=== PATIENT | male | born 1975 | race Caucasian/White ===

== ENCOUNTER 2017-04-11 18:09 | Observation (INO) | payer OTHER ==
[2017-04-11] MEDS ORDERED: SODIUM CHLORIDE 0.9% 1,000 ML IV STA (18:20)
[2017-04-11] MEDS ORDERED: NITROGLYCERIN OINT 1 INCH/GM PACKET TOPICAL STA (18:20)
--- NOTE | 2017-04-11 18:23 | ED ---
Chest Pain HPI - General Stated Complaint: chest pain Time Seen by Provider: 04/11/17 18:09 Source: patient, EMS, RN notes reviewed Mode of arrival: EMS Limitations: no limitations - History of Present Illness Initial Comments: This is a 41-year-old male with a benign history who states he had the onset around 11:00 today of left-sided chest pain was sharp in nature intermittent was initially 6/10 severity was brought in by EMS he had a gastrinoma as well as given aspirin and nitro by EMS personnel. Patient now stating his pain is 1/ 10 he believes nitro aspirin and oxygen did help. He also has some shortness of breath associated with it. No prior history of heart disease he is a nonsmoker denies any recent fevers chills sweats cough or other symptoms. MD Complaint: chest pain - Related Data Home Medications Medication Instructions Recorded Confirmed Odmvcvi-Hslf-Kion [id number] 2 tab PO Q4HR PRN 04/11/17 04/11/17 [Excedrin] Allergies Allergy/AdvReac Type Severity Reaction Status Date / Time venom-honey bee Allergy Severe Anaphylaxis Verified 04/11/17 19:02 codeine AdvReac Nausea & Verified 04/11/17 19:02 Vomiting Review of Systems ROS Statement: Those systems with pertinent positive or pertinent negative responses have been documented in the HPI. ROS Other: All systems not noted in ROS Statement are negative. EKG Findings - EKG Results: EKG: interpreted by YASMANY, sinus rhythm (Sinus rhythm a rate of 88 appear of 01 56 QRS duration is 94 QT/QTC of 340/411 left exodeviation no acute ST-T wave changes.) Past Medical History Past Medical History: Asthma History of Any Multi-Drug Resistant Organisms: None Reported Past Surgical History: Tonsillectomy Additional Past Surgical History / Comment(s): finger, plate left arm, hernia repair Past Psychological History: No Psychological Hx Reported Smoking Status: Never smoker Past Alcohol Use History: None Reported Past Drug Use History: None Reported General Exam - General Exam Comments Initial Comments: This is a well-developed well-nourished awake alert oriented 3 male Limitations: no limitations General appearance: alert, in no apparent distress Head exam: Present: atraumatic, normocephalic, normal inspection Eye exam: Present: normal appearance, PERRL, EOMI. Absent: scleral icterus, conjunctival injection, periorbital swelling ENT exam: Present: normal exam, mucous membranes moist Neck exam: Present: normal inspection. Absent: tenderness, meningismus, lymphadenopathy Respiratory exam: Present: normal lung sounds bilaterally. Absent: respiratory distress, wheezes, rales, rhonchi, stridor Cardiovascular Exam: Present: regular rate, normal rhythm, normal heart sounds. Absent: systolic murmur, diastolic murmur, rubs, gallop, clicks GI/Abdominal exam: Present: soft, normal bowel sounds. Absent: distended, tenderness, guarding, rebound, rigid Extremities exam: Present: normal inspection, full ROM, normal capillary refill. Absent: tenderness, pedal edema, joint swelling, calf tenderness Back exam: Present: normal inspection Neurological exam: Present: alert, oriented X3, CN II-XII intact Psychiatric exam: Present: normal affect, normal mood Skin exam: Present: warm, dry, intact, normal color. Absent: rash Course Vital Signs 04/11/17 18:10 Temperature 98.7 F Pulse Rate 94 Respiratory 18 Rate Blood Pressure 132/62 O2 Sat by Pulse 97 Oximetry Chest Pain MDM - MDM I did review the imaging and reports no acute findings. Patient states he still having intermittent episodes of chest pain. This workup appears be within normal limits though he did get symptomatic relief from the medications were rendered prior to arrival. He will be admitted for evaluation by cardiology. Disposition Clinical Impression: Unstable angina pectoris, Chest pain Disposition: ADMITTED IP TO THIS [facility] Condition: Stable Referrals: None,Stated [Primary Care Provider] - 1-2 days
[2017-04-11 18:34] LABS: Basophils # (A) 0.1 k/uL (0-0.2); Basophils % (A) 1 %; CH 28.4; CHCM 33.8; Eosinophils # (A) 0.1 k/uL (0-0.7); Eosinophils % (A) 1 %; HCT 40.2 % (39.0-53.0); HDW 2.54; HGB 13.5 gm/dL (13.0-17.5); Luc # (Auto) 0.09; Luc % (Auto) 1; Lymphocytes # (A) 1.1 k/uL (1.0-4.8); Lymphocytes % (A) 10 %; MCH 28.5 pg (25.0-35.0); MCHC 33.7 g/dL (31.0-37.0); MCV 84.5 fL (80.0-100.0); Mean Platelet Volume 6.4; Monocytes # (A) 0.9 k/uL (0-1.0); Monocytes % (A) 9 %; Neutrophils # (A) 7.9 k/uL (1.3-7.7); Neutrophils % (A) 78 %; RBC 4.76 m/uL (4.30-5.90); RDW 12.7 % (11.5-15.5); WBC 10.2 k/uL (3.8-10.6); WBC (Perox) 10.37
--- NOTE | 2017-04-11 18:39 | XR ---
EXAMINATION TYPE: XR chest 2V DATE OF EXAM: 04/11/2017 6:30 PM COMPARISON: 11/16/2013 HISTORY: 41-year-old male with chest pain and shortness of breath TECHNIQUE: PA and lateral views FINDINGS: Heart is normal size. Aorta and pulmonary vasculature within normal limits. Some strandy atelectasis of the left base. Otherwise, no consolidation or pleural effusion. IMPRESSION: Some strandy atelectasis at the left base. No acute cardiopulmonary process.
[2017-04-11 18:49] LABS: INR 1.1 (<1.1); Partial Thromboplastin Time 24.3 sec (22.0-30.0); Prothrombin Time 10.7 sec (9.0-12.0)
[2017-04-11 19:01] LABS: ALT 48 U/L (21-72); AST 27 U/L (17-59); Alkaline Phosphatase 60 U/L (38-126); Amylase 64 U/L (30-110); Anion Gap 10 mmol/L; Blood Urea Nitrogen 16 mg/dL (9-20); Carbon Dioxide 24 mmol/L (22-30); Chloride 106 mmol/L (98-107); Glucose 99 mg/dL (74-99); Magnesium 1.8 mg/dL (1.6-2.3); Non-African American GFR(MDRD) >60 (>60 ml/min/1.73 sqM); Potassium 4.1 mmol/L (3.5-5.1); Sodium 140 mmol/L (137-145); Total Bilirubin 0.5 mg/dL (0.2-1.3); Total Protein 6.4 g/dL (6.3-8.2)
[2017-04-11 19:10] LABS: Creatine Kinase 136 U/L (55-170)
[2017-04-11 19:23] LABS: Creatine Kinase MB 0.6 ng/mL (0.0-2.4); Troponin I <0.012 ng/mL (0.000-0.034)
[2017-04-11] MEDS ORDERED: HEPARIN SODIUM,PORCINE 5,000 UNIT/ML 1 ML VIAL IV ONE (20:13)
[2017-04-11] MEDS ORDERED: NITROGLYCERIN SL TABS 0.4 MG TAB SUBLINGUAL PRN (20:13)
[2017-04-11] MEDS ORDERED: HEPARIN SODIUM,PORCINE/D5W PMX 25,000 UNIT in DEXTROSE/WATER 1 500ML.BAG IV SCH (20:15)
[2017-04-11] MEDS ORDERED: SODIUM CHLORIDE 0.9% 1,000 ML IV SCH (20:15)
[2017-04-11 21:49] LABS: Creatine Kinase 127 U/L (55-170)
[2017-04-11 22:03] LABS: Creatine Kinase MB 0.6 ng/mL (0.0-2.4); Troponin I <0.012 ng/mL (0.000-0.034)
[2017-04-11] MEDS: ACETAMINOPHEN TAB 325 MG TAB PO PRN (22:53)
[2017-04-12] MEDS: NITROGLYCERIN OINT 1 INCH/GM PACKET TOPICAL SCH ×2 (00:45→05:59)
[2017-04-12] MEDS ORDERED: MORPHINE SULFATE 2 MG/ML SYRINGE IVP PRN (01:19)
[2017-04-12] MEDS ORDERED: ONDANSETRON 4 MG/2 ML VIAL IVP PRN (01:20)
[2017-04-12] MEDS: ACETAMINOPHEN TAB 325 MG TAB PO PRN ×3 (03:12→14:59)
[2017-04-12] MEDS ORDERED: HEPARIN SODIUM,PORCINE 5,000 UNIT/ML 1 ML VIAL IV PRN (04:25)
[2017-04-12 07:15] LABS: Creatine Kinase 111 U/L (55-170)
[2017-04-12 07:21] LABS: Cholesterol 117 mg/dL (<200); HDL Cholesterol 42 mg/dL (40-60); Triglycerides 75 mg/dL (<150)
[2017-04-12 07:27] LABS: Creatine Kinase MB 0.3 ng/mL (0.0-2.4); Troponin I <0.012 ng/mL (0.000-0.034)
--- NOTE | 2017-04-12 08:26 | P.CRDCN ---
<Gill Lea E - Last Filed: 04/12/17 08:15> History of Present Illness Consult date: 04/12/17 Requesting physician: Krystyna Crandall Consult reason: chest pain Chief complaint: Chest pain History of present illness: This is a pleasant 41-year-old gentleman with no documented history of hypertension, no diabetes, no hyperlipidemia, nonsmoker, unaware of family history. Works as a heavy duty truck mechanic. He presents to the hospital with symptoms of left-sided chest pain which she describes as a heaviness with also a sharp pain in the chest. He does have associated shortness of breath and states that on deep breathing the pain gets significantly worse. He also has significant chest wall tenderness in that area. He was given sublingual nitroglycerin with minimal relief of symptoms, he states that the morphine completely took care of symptoms. Troponins have been negative 3. EKG shows normal sinus rhythm with nonspecific ST-T wave changes. CBC has been normal. D-dimer negative. Potassium 4.1, BUN 16, creatinine 1.0. BNP normal. Cholesterol 117, LDL 60, HDL 42. Temperature 99.3. At the time of my examination this morning, patient only has pain with deep breathing, and on palpation of the chest. Past Medical History Past Medical History: Asthma History of Any Multi-Drug Resistant Organisms: None Reported Past Surgical History: Tonsillectomy Additional Past Surgical History / Comment(s): finger, plate left arm, hernia repair Past Psychological History: No Psychological Hx Reported Smoking Status: Never smoker Past Alcohol Use History: None Reported Past Drug Use History: None Reported - Past Family History Mother Family Medical History: Diabetes Mellitus Medications and Allergies Home Medications Medication Instructions Recorded Confirmed Type Jndoumy-Kojp-Igcx [id number] 2 tab PO Q4HR PRN 04/11/17 04/11/17 History [Excedrin] Allergies Allergy/AdvReac Type Severity Reaction Status Date / Time venom-honey bee Allergy Severe Anaphylaxis Verified 04/11/17 19:02 codeine AdvReac Nausea & Verified 04/11/17 19:02 Vomiting Physical Exam Vitals: Vital Signs Temp Pulse Pulse Resp BP BP Pulse Ox 04/12/17 03:41 99.3 F 83 16 118/65 96 04/12/17 01:52 64 18 102/58 97 04/12/17 00:48 88 18 103/53 98 04/12/17 00:14 90 18 103/58 96 04/11/17 23:27 72 18 102/58 100 04/11/17 22:44 74 18 116/56 99 04/11/17 22:00 70 18 128/70 99 04/11/17 21:00 90 18 105/59 95 04/11/17 19:53 93 18 135/68 97 04/11/17 19:22 80 18 110/58 98 04/11/17 18:10 98.7 F 94 18 132/62 97 Intake and Output 04/11/17 04/12/17 04/12/17 22:59 06:59 14:59 Intake Total 1493.983 Balance 1493.983 Intake: IV 960 Heparin Sodium,Porcine/ 160 D5w Pmx 25,000 unit In Dextrose/Water 1 500ml. bag @ 10.2 UNITS/KG/HR 19 .89 mls/hr IV .Q24H KINJAL Rx#:[id number] Sodium Chloride 0.9% 1, 800 000 ml @ 100 mls/hr IV . Q10H STA Rx#:[id number] Intake, IV Titration 183.983 Amount Heparin Sodium,Porcine/ 183.983 D5w Pmx 25,000 unit In Dextrose/Water 1 500ml. bag @ 10.2 UNITS/KG/HR 19 .89 mls/hr IV .Q24H KINJAL Rx#:[id number] Oral 350 Other: Voiding Method Urinal # Voids 2 Weight 97.522 kg 105.9 kg PHYSICAL EXAMINATION: HEENT: Head is atraumatic, normocephalic. Pupils equal, round. Neck is supple. There is no elevated jugular venous pressure. HEART EXAMINATION: Heart S1, S2 normal. No murmur or gallop heard. CHEST EXAMINATION: Lungs are clear to auscultation and precussion. No chest wall tenderness is noted on palpation or with deep breathing. ABDOMEN: Soft, nontender. Bowel sounds are heard. No organomegaly noted. EXTREMITIES: 2+ peripheral pulses with no evidence of peripheral edema and no calf tenderness noted. NEUROLOGIC patient is awake, alert and oriented -3. . Results 04/11/17 18:10 04/11/17 18:10 Cardiac Enzymes 04/11/17 04/11/17 04/11/17 Range/Units 18:10 18:10 20:55 AST 27 (17-59) U/L CK-MB (CK-2) 0.6 0.6 (0.0-2.4) ng/mL Troponin I <0.012 <0.012 (0.000-0.034) ng/mL 04/12/17 Range/Units 05:42 AST (17-59) U/L CK-MB (CK-2) 0.3 (0.0-2.4) ng/mL Troponin I <0.012 (0.000-0.034) ng/mL Coagulation 04/11/17 04/12/17 Range/Units 18:10 02:31 PT 10.7 (9.0-12.0) sec APTT 24.3 34.8 H (22.0-30.0) sec Lipids 04/12/17 Range/Units 05:42 Triglycerides 75 (<150) mg/dL Cholesterol 117 (<200) mg/dL HDL Cholesterol 42 (40-60) mg/dL CBC 04/11/17 Range/Units 18:10 WBC 10.2 (3.8-10.6) k/uL RBC 4.76 (4.30-5.90) m/uL Hgb 13.5 (13.0-17.5) gm/dL Hct 40.2 (39.0-53.0) % Plt Count 224 (150-450) k/uL Comprehensive Metabolic Panel 04/11/17 Range/Units 18:10 Sodium 140 (137-145) mmol/L Potassium 4.1 (3.5-5.1) mmol/L Chloride 106 (98-107) mmol/L Carbon Dioxide 24 (22-30) mmol/L BUN 16 (9-20) mg/dL Creatinine 1.07 (0.66-1.25) mg/dL Glucose 99 (74-99) mg/dL Calcium 8.0 L (8.4-10.2) mg/dL AST 27 (17-59) U/L ALT 48 (21-72) U/L Alkaline Phosphatase 60 (38-126) U/L Total Protein 6.4 (6.3-8.2) g/dL Albumin 3.5 (3.5-5.0) g/dL Current Medications Generic Name Dose Route Start Last Admin Trade Name Freq PRN Reason Stop Dose Admin Acetaminophen 650 mg 05/21/17 22:48 04/12/17 06:28 Tylenol Tab PO 650 mg Q4HR PRN Administration Fever and/ or Mild Pain Aspirin 325 mg 04/12/17 09:00 Aspirin PO DAILY [facility] Heparin Sodium (Porcine) 0 unit 04/12/17 04:25 04/12/17 06:09 Heparin IV 4,000 unit Q6H PRN Administration Low PTT Protocol Heparin Sodium/Dextrose 25,000 500 mls @ 19.89 mls/hr 04/11/17 20:15 06:15 unit/ IV Solution IV 13.2 units/kg/hr .Q24H KINJAL 25.74 mls/hr Protocol Titration 10.2 UNITS/KG/HR Sodium Chloride 1,000 mls @ 20 mls/hr 04/11/17 20:15 04/11/17 20:41 Saline 0.9% IV Not Given .Q24H [facility] Morphine Sulfate 2 mg 04/12/17 01:19 04/12/17 01:23 Morphine Sulfate (Inj) IVP 2 mg Q3H PRN Administration Severe Pain/Discomfort Nitroglycerin 1 inch 04/12/17 00:00 04/12/17 05:59 Nitro-Bid Oint TOPICAL Not Given Q6HR [facility] Nitroglycerin 0.4 mg 04/11/17 20:13 Nitrostat SUBLINGUAL Q5M PRN Chest Pain Ondansetron HCl 4 mg 04/12/17 01:20 Zofran IVP Q6HR PRN Nausea And Vomiting Intake and Output 04/11/17 04/12/17 04/12/17 22:59 06:59 14:59 Intake Total 1493.983 Balance 1493.983 Intake: IV 960 Heparin Sodium,Porcine/ 160 D5w Pmx 25,000 unit In Dextrose/Water 1 500ml. bag @ 10.2 UNITS/KG/HR 19 .89 mls/hr IV .Q24H KINJAL Rx#:[id number] Sodium Chloride 0.9% 1, 800 000 ml @ 100 mls/hr IV . Q10H STA Rx#:[id number] Intake, IV Titration 183.983 Amount Heparin Sodium,Porcine/ 183.983 D5w Pmx 25,000 unit In Dextrose/Water 1 500ml. bag @ 10.2 UNITS/KG/HR 19 .89 mls/hr IV .Q24H KINJAL Rx#:[id number] Oral 350 Other: Voiding Method Urinal # Voids 2 Weight 97.522 kg 105.9 kg 04/11/17 18:10 04/11/17 18:10 EKG Interpretations (text) EKG shows normal sinus rhythm with nonspecific ST-T wave changes Assessment and Plan Plan: Assessment and plan #1 chest pain, atypical for acute coronary syndrome. Troponins have been negative 3. EKG shows normal sinus rhythm with nonspecific ST-T wave changes. #2 Cardiac factors negative for hypertension, no diabetes, no hyperlipidemia, patient is a nonsmoker, unaware of family history. Plan Discontinue the Nitropaste and IV heparin. Obtain echocardiogram with Doppler study. Patient's echocardiogram with Doppler study was normal, he may be able to be discharged from our perspective and follow-up with outpatient stress testing. DNP note has been reviewed, I agree with a documented findings and plan of care. Patient was seen and examined. <Vaughn Culver - Last Filed: 04/12/17 08:35> Physical Exam Vitals: Vital Signs Temp Pulse Pulse Resp BP BP Pulse Ox 04/12/17 03:41 99.3 F 83 16 118/65 96 04/12/17 01:52 64 18 102/58 97 04/12/17 00:48 88 18 103/53 98 04/12/17 00:14 90 18 103/58 96 04/11/17 23:27 72 18 102/58 100 04/11/17 22:44 74 18 116/56 99 04/11/17 22:00 70 18 128/70 99 04/11/17 21:00 90 18 105/59 95 04/11/17 19:53 93 18 135/68 97 04/11/17 19:22 80 18 110/58 98 04/11/17 18:10 98.7 F 94 18 132/62 97 Intake and Output 04/11/17 04/12/17 04/12/17 22:59 06:59 14:59 Intake Total 1493.983 Balance 1493.983 Intake: IV 960 Heparin Sodium,Porcine/ 160 D5w Pmx 25,000 unit In Dextrose/Water 1 500ml. bag @ 10.2 UNITS/KG/HR 19 .89 mls/hr IV .Q24H KINJAL Rx#:[id number] Sodium Chloride 0.9% 1, 800 000 ml @ 100 mls/hr IV . Q10H STA Rx#:[id number] Intake, IV Titration 183.983 Amount Heparin Sodium,Porcine/ 183.983 D5w Pmx 25,000 unit In Dextrose/Water 1 500ml. bag @ 10.2 UNITS/KG/HR 19 .89 mls/hr IV .Q24H KINJAL Rx#:[id number] Oral 350 Other: Voiding Method Urinal # Voids 2 Weight 97.522 kg 105.9 kg Results 04/11/17 18:10 04/11/17 18:10 Cardiac Enzymes 04/11/17 04/11/17 04/11/17 Range/Units 18:10 18:10 20:55 AST 27 (17-59) U/L CK-MB (CK-2) 0.6 0.6 (0.0-2.4) ng/mL Troponin I <0.012 <0.012 (0.000-0.034) ng/mL 04/12/17 Range/Units 05:42 AST (17-59) U/L CK-MB (CK-2) 0.3 (0.0-2.4) ng/mL Troponin I <0.012 (0.000-0.034) ng/mL Coagulation 04/11/17 04/12/17 Range/Units 18:10 02:31 PT 10.7 (9.0-12.0) sec APTT 24.3 34.8 H (22.0-30.0) sec Lipids 04/12/17 Range/Units 05:42 Triglycerides 75 (<150) mg/dL Cholesterol 117 (<200) mg/dL HDL Cholesterol 42 (40-60) mg/dL CBC 04/11/17 Range/Units 18:10 WBC 10.2 (3.8-10.6) k/uL RBC 4.76 (4.30-5.90) m/uL Hgb 13.5 (13.0-17.5) gm/dL Hct 40.2 (39.0-53.0) % Plt Count 224 (150-450) k/uL Comprehensive Metabolic Panel 04/11/17 Range/Units 18:10 Sodium 140 (137-145) mmol/L Potassium 4.1 (3.5-5.1) mmol/L Chloride 106 (98-107) mmol/L Carbon Dioxide 24 (22-30) mmol/L BUN 16 (9-20) mg/dL Creatinine 1.07 (0.66-1.25) mg/dL Glucose 99 (74-99) mg/dL Calcium 8.0 L (8.4-10.2) mg/dL AST 27 (17-59) U/L ALT 48 (21-72) U/L Alkaline Phosphatase 60 (38-126) U/L Total Protein 6.4 (6.3-8.2) g/dL Albumin 3.5 (3.5-5.0) g/dL Current Medications Generic Name Dose Route Start Last Admin Trade Name Freq PRN Reason Stop Dose Admin Acetaminophen 650 mg 04/11/17 22:48 04/12/17 06:28 Tylenol Tab PO 650 mg Q4HR PRN Administration Fever and/ or Mild Pain Aspirin 81 mg 04/12/17 09:00 Aspirin PO DAILY [facility] Morphine Sulfate 2 mg 04/12/17 01:19 04/12/17 01:23 Morphine Sulfate (Inj) IVP 2 mg Q3H PRN Administration Severe Pain/Discomfort Nitroglycerin 0.4 mg 04/11/17 20:13 Nitrostat SUBLINGUAL Q5M PRN Chest Pain Ondansetron HCl 4 mg 04/12/17 01:20 Zofran IVP Q6HR PRN Nausea And Vomiting Intake and Output 04/11/17 04/12/17 04/12/17 22:59 06:59 14:59 Intake Total 1493.983 Balance 1493.983 Intake: IV 960 Heparin Sodium,Porcine/ 160 D5w Pmx 25,000 unit In Dextrose/Water 1 500ml. bag @ 10.2 UNITS/KG/HR 19 .89 mls/hr IV .Q24H KINJAL Rx#:[id number] Sodium Chloride 0.9% 1, 800 000 ml @ 100 mls/hr IV . Q10H STA Rx#:[id number] Intake, IV Titration 183.983 Amount Heparin Sodium,Porcine/ 183.983 D5w Pmx 25,000 unit In Dextrose/Water 1 500ml. bag @ 10.2 UNITS/KG/HR 19 .89 mls/hr IV .Q24H KINJAL Rx#:[id number] Oral 350 Other: Voiding Method Urinal # Voids 2 Weight 97.522 kg 105.9 kg 04/11/17 18:10 04/11/17 18:10
--- NOTE | 2017-04-12 08:57 | P.PN ---
Progress Note - Text Patient interviewed and examined Atypical discomfort pleuritic in nature. All cardiac enzymes Multiple normal ECGs Normal LDL Questionable history of hypertension Plan Stop heparin. Nitroglycerin 2-D echo and Doppler study 2-D echo and Doppler study See full dictation by Dr. burk
[2017-04-12] MEDS ORDERED: ASPIRIN 325 MG TAB PO SCH (09:00)
[2017-04-12] MEDS: ASPIRIN 81 MG CHEW PO SCH (09:33)
[2017-04-12] MEDS ORDERED: SODIUM CHLORIDE 0.9% 1,000 ML IV ONE (15:16)
--- NOTE | 2017-04-12 23:20 | HP ---
DATE OF ADMISSION: 04/11/2017 REASON FOR ADMISSION: Chest pain. HISTORY OF PRESENTING ILLNESS: This is a 41-year-old gentleman who was brought into the hospital actually for swelling in his neck and around his lips and throat swelling as well. Patient has a significant history of ALLERGIES TO BEES, with similar episodes in the past. Patient apparently has had anaphylactic reactions in the past; however, he has never been intubated in the past. Patient states that he was outside playing with his children and suddenly noticed the above-described symptoms. Thereafter he noticed a left-sided chest pain as well. Patient was seen in the emergency room. Apparently at that time patient continued to have some swelling in his neck; however, it resolved overnight. Patient states that the chest pain has improved upon receiving a dose of morphine. EKG did not reveal ST-T wave changes. Cardiac enzymes x3 were negative. Patient states that he has had some symptoms of fatigue; however, no fevers, chills, nausea, vomiting, diarrhea, abdominal pain, urinary urgency or frequency are reported. Fourteen-point review of systems was done; none pertinent other than those mentioned above. His chest pain was left-sided, non-radiating, dull, continuous in nature. No alleviating or exacerbating factors reported. Home medications include Excedrin p.r.n., 2 tabs p.o. q.4 hours. ALLERGIES: 1. BEES. 2. CODEINE. Past medical history includes asthma. Past surgical history includes tonsillectomy and a hernia repair. SOCIAL HISTORY: Lifelong nonsmoker. No alcohol use or illicit drug use. PHYSICAL EXAM: VITALS: Temperature 98.7, heart rate 94, respiratory rate around 16, blood pressure 130/62. Saturating 97% on room air. GENERALLY: Patient appears to be alert, oriented x3. HEENT: The pupils are equal and reactive to light and accommodation. HEART: S1, S2 present. No murmur appreciated. LUNGS: Good air entry. No wheezing or rhonchi noted. ABDOMINAL EXAM: Soft, nontender, no organomegaly appreciated. GENITOURINARY: No Lockhart in place. EXTREMITIES: Pulses can be palpated distally. Denies any tenderness on gross palpation. SKIN: On a gross skin exam does not appear to have any purpura or any skin rashes that were noted. NEUROLOGICALLY: Grossly cranial nerves 2-12 intact. No motor or sensory deficits noted. Laboratory data include hemoglobin 13.5, hematocrit 40.2, white count of 10.2, platelets of 224. D-dimer was 0.29. Sodium 140, potassium 4.1, chloride 106, bicarb 24. BUN 16, creatinine 1.07. Cardiac enzymes x3 were negative. Influenza screen was negative. ASSESSMENT AND PLAN: 1. Atypical chest pain. This is likely musculoskeletal in etiology. 2. Anaphylactic reaction to an unknown allergen. PLAN: Continue monitoring overnight in the hospital. An echocardiogram was requested. Will rule out wall motion abnormalities. Patient can have an outpatient stress test as recommended by Cardiology. Patient will be given an EpiPen on discharge. Did discuss visiting an local owner operator truck driver to delineate source. Patient states he is sure that it was not a honeybee sting. Patient will be given a normal saline fluid bolus as well. If patient is stable, will likely discharge the patient home in the next 24 hours to follow up outpatient with Cardiology, depending on the echocardiogram results.
[2017-04-13 08:33] VITALS: RESP 18
[2017-04-13] MEDS: ASPIRIN 81 MG CHEW PO SCH (09:07)
[2017-04-13] MEDS ORDERED: KETOROLAC 30 MG/ML 1 ML VIAL IVP STA (11:37)
[2017-04-13] MEDS ORDERED: methylPREDNISolone SOD SUCCI 125 MG/2 ML VIAL IV STA (11:39)
[2017-04-13 12:54] VITALS: BP 129/83; PULSE 93; TEMP 99
--- NOTE | 2017-04-13 15:58 | P.DS ---
Providers Date of admission: 04/11/17 20:13 Attending physician: Krystyna Crandall Consults: 04/11/17 20:13 Consult Physician Urgent Consulting Provider: Louise Terry Consult Reason/Comments: Chest pain Do you want consulting provider notified?: Yes Primary care physician: Stated None Hospital Course: Hospital course This is a 41-year-old gentleman who was brought into the hospital actually for swelling in his neck and around his lips and throat swelling as well. Patient has a significant history of ALLERGIES TO BEES, with similar episodes in the past. Patient apparently has had anaphylactic reactions in the past; however, he has never been intubated in the past. Patient states that he was outside playing with his children and suddenly noticed the above-described symptoms. Thereafter he noticed a left-sided chest pain as well. Patient was seen in the emergency room. Apparently at that time patient continued to have some swelling in his neck; however, it resolved overnight. Patient states that the chest pain has improved upon receiving a dose of morphine. EKG did not reveal ST-T wave changes. Cardiac enzymes x3 were negative. Patient states that he has had some symptoms of fatigue; however, no fevers, chills, nausea, vomiting, diarrhea, abdominal pain, urinary urgency or frequency are reported. Fourteen-point review of systems was done; none pertinent other than those mentioned above. His chest pain was left-sided, non-radiating, dull, continuous in nature. No alleviating or exacerbating factors reported. No procedures were performed doing well on the day of discharge tolerating activity PHYSICAL EXAM: VITALS: Temperature 98.7, heart rate 94, respiratory rate around 16, blood pressure 130/62. Saturating 97% on room air. GENERALLY: Patient appears to be alert, oriented x3. HEENT: The pupils are equal and reactive to light and accommodation. HEART: S1, S2 present. No murmur appreciated. reproducible chest pain LUNGS: Good air entry. No wheezing or rhonchi noted. ABDOMINAL EXAM: Soft, nontender, no organomegaly appreciated. GENITOURINARY: No Lockhart in place. EXTREMITIES: Pulses can be palpated distally. Denies any tenderness on gross palpation. SKIN: On a gross skin exam does not appear to have any purpura or any skin rashes that were noted. NEUROLOGICALLY: Grossly cranial nerves 2-12 intact. No motor or sensory deficits noted. ASSESSMENT AND PLAN: 1. Atypical chest pain. This is likely musculoskeletal in etiology. 2. Anaphylactic reaction to an unknown allergen. PLAN: Patient will be given an EpiPen on discharge. Did discuss visiting an call center team leader to delineate source. Patient states he is sure that it was not a honeybee sting. pt ambulated without difficulty was given a dose of solumedrol and toradol for his musculo-skeletal pain, improved discussed following up with an call center team leader 2 epipens were prescribed and discussed use with the pt and the family. Continue monitoring overnight in the hospital. An echocardiogram was requested. Will rule out wall motion abnormalities. Patient can have an outpatient stress test as recommended by Cardiology. Needs to establish care with Dr Martin Patient Condition at Discharge: Stable Plan - Discharge Summary New Discharge Prescriptions: EPINEPHrine [Epipen 2-Dimas] 0.3 mg IJ ONCE #2 auto.injct RX: Ibuprofen [Motrin] 800 mg PO TID #20 tab Discharge Medication List RX: Ijrauxk-Jvdz-Lflh [id number] [Excedrin] 2 tab PO Q4HR PRN 04/11/17 [ History] EPINEPHrine [Epipen 2-Dimas] 0.3 mg IJ ONCE #2 auto.injct 04/12/17 [Rx] RX: Ibuprofen [Motrin] 800 mg PO TID #20 tab 04/13/17 [Rx] Follow up Appointment(s)/Referral(s): Vaughn Culver MD [STAFF PHYSICIAN] - 1 Week (will call back with appointment date and time) Harish Martin MD [REFERRING] - 1 Week None,Stated [Primary Care Provider] - 1-2 days Patient Instructions/Handouts: Angina (DC), Allergies (GEN) Discharge Disposition: HOME SELF-CARE
--- NOTE | 2017-04-14 11:48 | ECHOF ---
Referral Reason:chest pain MEASUREMENTS -------- HEIGHT: 180.3 cm WEIGHT: 105.7 kg BP: 106/57 RVIDd: 3.4 cm (< 3.3) IVSd: 1.2 cm (0.6 - 1.1) LVIDd: 4.9 cm (3.9 - 5.3) LVPWd: 1.1 cm (0.6 - 1.1) IVSs: 1.7 cm LVIDs: 3.4 cm LVPWs: 1.5 cm Ao Diam: 3.3 cm (2.0 - 3.7) AV Cusp: 2.3 cm (1.5 - 2.6) LA Diam: 3.7 cm (2.7 - 3.8) MV EXCURSION: 19.436 mm (> 18.000) MV EF SLOPE: 208 mm/s (70 - 150) EPSS: 1.5 cm MV E Laci: 0.90 m/s MV DecT: 167 ms MV A Laci: 0.57 m/s MV E/A Ratio: 1.59 RAP: 5.00 mmHg RVSP: 15.96 mmHg FINDINGS -------- Sinus rhythm. This was a technically good study. There is mild concentric left ventricular hypertrophy. Overall left ventricular systolic function is low-normal with, an EF between 50 - 55 %. The right ventricle is mildly enlarged. The left atrium is normal in size. The right atrium is normal in size. The aortic valve is trileaflet, and appears structurally normal. No aortic stenosis or regurgitation. The mitral valve leaflets are mildly thickened. Mild mitral regurgitation is present. Mild tricuspid regurgitation present. The right ventricular systolic pressure, as measured by Doppler, is 15.96mmHg. Pulmonic valve appears structurally normal. The aortic root size is normal. The pericardium is normal. CONCLUSIONS -------- 1. Sinus rhythm. 2. Mild mitral regurgitation is present. 3. Mild tricuspid regurgitation present. 4. The right ventricular systolic pressure, as measured by Doppler, is 15.96mmHg. 5. Pulmonic valve appears structurally normal. 6. The aortic root size is normal. 7. The pericardium is normal. 8. This was a technically good study. 9. There is mild concentric left ventricular hypertrophy. 10. Overall left ventricular systolic function is low-normal with, an EF between 50 - 55 %. 11. The right ventricle is mildly enlarged. 12. The left atrium is normal in size. 13. The right atrium is normal in size. 14. The aortic valve is trileaflet, and appears structurally normal. No aortic stenosis or regurgitation. 15. The mitral valve leaflets are mildly thickened. [employer]: Carmen Neely RDCS
== END 2017-04-13 17:18 | disposition home or self-care (01) ==
LOC: EC 18:09 → 3OBS 20:13 → 6SEL 04-12 02:45
PROVIDERS: ADMIT Internal Medicine; ATTEND Internal Medicine
DX: R07.89 Other chest pain (principal); J45.909 Unspecified asthma, uncomplicated; Z79.82 Long term (current) use of aspirin; Z88.5 Allergy status to narcotic agent; Z91.030 Bee allergy status; R53.83 Other fatigue; T78.2XXA Anaphylactic shock, unspecified, initial encounter
CPT/HCPCS: 96361 ×4; 96376 ×2; 96365 ×2; 96366 ×4; 99285 ×2; 96375 ×2; 36415; 93005 ×2; 93306; 85379; 83880; 80061; 80053; 85652; 82150; 82550 ×2; 82553 ×2; 83690; 83735; 84484 ×2; 85025; 85610; 85730 ×2; 87502; 71020; G0378 ×4; J1644 ×3; J2930; J1885; J2270